=== PATIENT | female | born 1985 | race Caucasian/White ===

== ENCOUNTER 2016-07-29 13:52 | Emergency (ER) | payer MEDICAID ==
[2016-07-29 13:52] VITALS: BMI 27.8
[2016-07-29 14:07] VITALS: BP 130/78; PULSE 78; RESP 18; TEMP 98.2; O2SAT 100
[2016-07-29] MEDS ORDERED: Naproxen 500 MG TAB PO ONE (14:13)
--- NOTE | 2016-07-29 14:15 | ED PDOC ---
Lower Extremity Pain/Injury Time Seen by Provider: 07/29/16 14:09 Chief Complaint (Nursing): Wound Check Chief Complaint (Provider): Lt Leg Pain History Per: Patient History/Exam Limitations: no limitations Onset/Duration Of Symptoms: Hrs Current Symptoms Are (Timing): Still Present Severity: Mild Additional Complaint(s): Patient is a 30 year old female presenting to the ED complaining of left leg pain status post fall last night. Patient reports her friend jumped on her back and her knee twisted inward and she collapsed. Patient reports last year she visited the ED for atraumatic left leg pain. Denies foot pain, hip pain, head injury, other injury. PMD: none - Knee Description Of Injury: Fell Past Medical History Vital Signs: Last Vital Signs Temp 98.2 F 07/29/16 14:04 Pulse 78 07/29/16 14:04 Resp 18 07/29/16 14:04 BP 130/78 07/29/16 14:04 Pulse Ox 100 07/29/16 14:04 - Medical History PMH: Back Problems - Family History Family History: States: No Known Family Hx - Immunization History Hx Tetanus Toxoid Vaccination: Yes Hx Influenza Vaccination: No Hx Pneumococcal Vaccination: No - Home Medications Home Medications: Ambulatory Orders Medication Instructions Recorded Ciprofloxacin 0.3% [Ciloxan 0.3% 25 drop OD Q2 #1 bottle 02/03/16 Ophth SOLN] Naproxen Sodium [Aleve] 2 tab PO Q8 02/03/16 PrednisoLONE 1% [Prednisolone 2 drop OD Q4 02/03/16 Acetate 5 Ml] Meloxicam [Mobic] 7.5 mg PO DAILY PRN #30 tab 07/29/16 - Allergies Allergies/Adverse Reactions: Allergies Allergy/AdvReac Type Severity Reaction Status Date / Time No Known Allergies Allergy Verified 02/03/16 16:00 Review of Systems ROS Statement: Except As Marked, All Systems Reviewed And Found Negative Constitutional: Negative for: Fever Musculoskeletal: Positive for: Leg Pain (left leg pain) Physical Exam - Reviewed Nursing Documentation Reviewed: Yes Vital Signs Reviewed: Yes - Physical Exam Appears: Positive for: Well, Non-toxic, No Acute Distress Head Exam: Positive for: ATRAUMATIC, NORMAL INSPECTION, NORMOCEPHALIC Skin: Positive for: Normal Color, Warm. Negative for: Rash Eye Exam: Positive for: Normal appearance Respiratory: Negative for: Respiratory Distress Pulses-Dorsalis Pedis (L): 2+ Pulses-Dorsalis Pedis (R): 2+ Extremity: Positive for: Tenderness (to lft knee greatest on medial side). Negative for: Normal ROM (limited secondary to pain lt leg), Calf Tenderness (b/ l), Deformity, Swelling Neurologic/Psych: Positive for: Alert, Oriented - ECG O2 Sat by Pulse Oximetry: 100 (RA) Pulse Ox Interpretation: Normal - Radiology X-Ray: Interpreted by Me (Knee x-ray) X-Ray Interpretation: No Acute Disease Medical Decision Making Medical Decision Making: Time: 14:12 Impression: 30 y/o female w/ left leg pain Plan: XR left knee Naproxen 500 mg PO Scribe Attestation: Documented by Deborah Ny acting as a scribe for Sachin Gil. Provider Attestation: All medical record entries made by the Scribe were at my direction and personally dictated by me. I have reviewed the chart and agree that the record accurately reflects my personal performance of the history, physical exam, medical decision making, and the department course for this patient. I have also personally directed, reviewed, and agree with the discharge instructions and disposition. Disposition - Clinical Impression Clinical Impression: Knee injury - Patient ED Disposition Is Patient to be Admitted: No - Disposition Referrals: [facility] [Outside] Mohamud Rasmussen III, MD [Staff Provider] - Disposition: Routine/Home Disposition Time: 15:15 Condition: STABLE Prescriptions: Meloxicam [Mobic] 7.5 mg PO DAILY PRN #30 tab PRN Reason: pain Instructions: Knee Sprain (ED), Crutch Instructions (ED), Knee Immobilizer (ED) Forms: [facility] ED School/Work Excuse Print Language: CZECH
--- NOTE | 2016-07-29 15:10 | RAD ---
PROCEDURE: Left Knee Radiographs. HISTORY: COMPARISON: None available. FINDINGS: BONES: No acute displaced fracture. JOINTS: No dislocation. JOINT EFFUSION: No significant joint effusion. OTHER FINDINGS: None. IMPRESSION: No acute displaced fracture, dislocation, or significant joint effusion identified. If symptoms persist, or if there is continued clinical concern, x-ray follow-up in 7-10 days should be considered.
== END 2016-07-29 15:33 | disposition home or self-care (01) ==
LOC: H.ER 13:52
DX: S89.92XA Unspecified injury of left lower leg, initial encounter (principal); W19.XXXA Unspecified fall, initial encounter; Y92.89 Other specified places as the place of occurrence of the external cause

== ENCOUNTER 2017-09-25 17:43 | Emergency (ER) | payer MEDICAID ==
[2017-09-25 17:44] VITALS: BMI 27.8
[2017-09-25 18:15] VITALS: BP 118/70; PULSE 60; RESP 16; TEMP 98.2; O2SAT 99
--- NOTE | 2017-09-25 18:52 | ED PDOC ---
HPI: Headache Time Seen by Provider: 09/25/17 18:18 Chief Complaint (Nursing): Headache Chief Complaint (Provider): Headache, neck pain History Per: Patient History/Exam Limitations: no limitations Additional Complaint(s): 31 year old female presents to the emergency department for evaluation of an intermittent headache that radiates to her right ear and neck for the past 6 days. Patient notes that she has been taking Motrin 800mg without relief, prompting ED visit. Otherwise, she denies fever, nausea, vomiting, vision changes, and dizziness. Denies any trauma or injury. PMD: Shahnaz Arias Past Medical History Reviewed: Historical Data, Nursing Documentation, Vital Signs Vital Signs: Last Vital Signs Temp 98.2 F 09/25/17 18:12 Pulse 60 09/25/17 18:12 Resp 16 09/25/17 18:12 BP 118/70 09/25/17 18:12 Pulse Ox 99 09/25/17 18:12 - Medical History PMH: Back Problems - Surgical History Surgical History: No Surg Hx - Family History Family History: States: No Known Family Hx - Living Arrangements Living Arrangements: With Family - Social History Current smoker - smoking cessation education provided: Yes Alcohol: Social Drugs: Denies - Home Medications Home Medications: Ambulatory Orders Medication Instructions Recorded Naproxen Sodium [Aleve] 2 tab PO Q8 02/03/16 Meloxicam [Mobic] 7.5 mg PO DAILY PRN #30 tab 07/29/16 oxyCODONE/Acetaminophen [Percocet 1 tab PO QID PRN #10 tab 07/30/16 5/325 mg Tab] Cyclobenzaprine [Cyclobenzaprine 10 mg PO TID PRN #20 tab 09/25/17 HCl] Naproxen [Naprosyn] 500 mg PO BID #20 tab 09/25/17 - Allergies Allergies/Adverse Reactions: Allergies Allergy/AdvReac Type Severity Reaction Status Date / Time No Known Allergies Allergy Verified 09/25/17 18:12 Review of Systems ROS Statement: Except As Marked, All Systems Reviewed And Found Negative Constitutional: Negative for: Fever, Chills, Weakness Eyes: Negative for: Vision Change Cardiovascular: Negative for: Chest Pain Gastrointestinal: Negative for: Nausea, Vomiting Neurological: Positive for: Headache (right sided ). Negative for: Weakness, Numbness, Incoordination, Change in Speech, Confusion, Seizures, Altered Mental Status, Dizziness Physical Exam - Reviewed Nursing Documentation Reviewed: Yes Vital Signs Reviewed: Yes - Physical Exam Appears: Positive for: Well, Non-toxic, No Acute Distress Head Exam: Positive for: ATRAUMATIC, NORMAL INSPECTION, NORMOCEPHALIC Skin: Positive for: Normal Color. Negative for: Rash Eye Exam: Positive for: Normal appearance, EOMI, PERRL ENT: Positive for: Normal ENT Inspection Neck: Positive for: Normal, Pain On Movement Of Neck (muscle spasm posterior neck) Cardiovascular/Chest: Positive for: Regular Rate, Rhythm Respiratory: Positive for: Normal Breath Sounds. Negative for: Respiratory Distress Extremity: Positive for: Normal ROM Neurologic/Psych: Positive for: Alert, garment parts cutter machine II-XII (grossly intact), Oriented. Negative for: Motor/Sensory Deficits, Aphasia, Facial Droop - Laboratory Results Result Diagrams: 09/25/17 19:24 09/25/17 19:24 Urine POC: Negative - ECG O2 Sat by Pulse Oximetry: 99 (RA) Pulse Ox Interpretation: Normal - Other Rad CT head X-Ray: Read By Radiologist X-Ray Interpretation: no acute finding Medical Decision Making Medical Decision Making: Time: 18:55 Initial Impression: 31 year old female with headache Initial Plan: --CT Head --IV fluids --Reglan IV --Toradol IV 20:15 - Patient states pain is improved with meds given. She still has muscle spasm pain to posterior neck, Flexeril 10 mg tablet given. 21:15 - patient feels better, pain is resolved. Patient aware of all diagnostic test results, all questions answered. Prescriptions given for Naprosyn and Flexeril. Patient was advised to follow-up with PMD or clinic in 2-3 days. Scribe Attestation: Documented by Sanna Jones, acting as a scribe for Olive Amsellem, PA-C. Provider Scribe Attestation: All medical record entries made by the Scribe were at my direction and personally dictated by me. I have reviewed the chart and agree that the record accurately reflects my personal performance of the history, physical exam, medical decision making, and the department course for this patient. I have also personally directed, reviewed, and agree with the discharge instructions and disposition. Disposition - Clinical Impression Clinical Impression: Headache, Neck sprain - Patient ED Disposition Is Patient to be Admitted: No Counseled Patient/Family Regarding: Studies Performed, Diagnosis, Need For Followup, Rx Given - Disposition Referrals: Shahnaz Arias [Medical Doctor] - Disposition: Routine/Home Disposition Time: 21:17 Condition: IMPROVED Additional Instructions: Take prescription meds as directed as needed for pain. Avoid heavy lifting and rest affected area. Apply warm compresses for soothing relief. Follow-up with primary doctor in 2-3 days or return any time if acutely worse. Prescriptions: Cyclobenzaprine [Cyclobenzaprine HCl] 10 mg PO TID PRN #20 tab PRN Reason: Muscle Spasm Naproxen [Naprosyn] 500 mg PO BID #20 tab Instructions: Cervical Muscle Strain (DC), Headache, Adult Forms: [employer] [facility] (Cameroonian) Results - Lab Results Lab Results: 09/25/17 09/25/17 19:24 19:24 WBC 7.6 RBC 4.16 Hgb 13.4 Hct 38.4 MCV 92.2 MCH 32.1 H MCHC 34.9 RDW 11.9 Plt Count 177 MPV 8.3 Neut % (Auto) 61.1 Lymph % (Auto) 29.6 Terrell % (Auto) 5.9 Eos % (Auto) 2.9 Baso % (Auto) 0.5 Neut # (Auto) 4.6 Lymph # (Auto) 2.2 Terrell # (Auto) 0.4 Eos # (Auto) 0.2 Baso # (Auto) 0.0 Sodium 141 Potassium 3.7 Chloride 106 Carbon Dioxide 24 Anion Gap 15 BUN 14 Creatinine 0.6 L Est GFR ( Amer) > 60 Est GFR (Non-Af Amer) > 60 Random Glucose 95 Calcium 9.6 Total Bilirubin 0.6 AST 24 ALT 41 Alkaline Phosphatase 66 Total Protein 7.5 Albumin 4.5 Globulin 3.1 Albumin/Globulin Ratio 1.5
[2017-09-25] MEDS ORDERED: Sodium Chloride 0.9% 1,000 ML IV STA (19:06)
[2017-09-25 19:44] LABS: BASO % 0.5 % (0.0-2.0); EOS # 0.2 K/uL (0.0-0.7); EOS % 2.9 % (0.0-4.0); HEMOGLOBIN 13.4 g/dL (12.0-16.0); LYMPH # 2.2 K/uL (1.0-4.3); LYMPH % 29.6 % (20.0-40.0); MEAN CELL VOLUME 92.2 fl (81.0-99.0); MEAN CORPUSCULAR HEMOGLOBIN 32.1 pg (27.0-31.0); MEAN CORPUSCULAR HGB CONC 34.9 g/dL (33.0-37.0); MEAN PLATELET VOLUME 8.3 fl (7.2-11.7); MONO # 0.4 K/uL (0.0-0.8); MONO % 5.9 % (0.0-10.0); NEUT # 4.6 K/uL (1.8-7.0); NEUT % 61.1 % (50.0-75.0); RBC 4.16 Mil/uL (3.80-5.20); RED CELL DISTRIBUTION WIDTH 11.9 % (11.5-14.5); WHITE BLOOD COUNT 7.6 K/uL (4.8-10.8)
[2017-09-25 20:05] LABS: ALB/GLOB RATIO 1.5 (1.0-2.1); ALBUMIN 4.5 g/dL (3.5-5.0); ALT/SGPT 41 U/L (9-52); AST/SGOT 24 U/L (14-36); BLOOD UREA NITROGEN 14 mg/dl (7-17); CALCIUM 9.6 mg/dL (8.4-10.2); GFR AFRICAN-AMERICAN > 60; GFR NON-AFRICAN AMERICAN > 60
--- NOTE | 2017-09-26 08:33 | CT ---
Date of service: 09/25/2017 PROCEDURE: CT HEAD WITHOUT CONTRAST. HISTORY: right side headache for 4 days COMPARISON: None available. TECHNIQUE: Axial computed tomography images were obtained through the head/brain without intravenous contrast. Radiation dose: Total exam DLP = 758.17 mGy-cm. This CT exam was performed using one or more of the following dose reduction techniques: Automated exposure control, adjustment of the mA and/or kV according to patient size, and/or use of iterative reconstruction technique. FINDINGS: HEMORRHAGE: No intracranial hemorrhage. BRAIN: No mass effect or edema. No atrophy or chronic microvascular ischemic changes. VENTRICLES: Unremarkable. No hydrocephalus. CALVARIUM: Unremarkable. PARANASAL SINUSES: Unremarkable as visualized. No significant inflammatory changes. MASTOID AIR CELLS: Unremarkable as visualized. No inflammatory changes. OTHER FINDINGS: None. IMPRESSION: No intracranial mass, hemorrhage or evidence of acute infarct. The preliminary findings for this examination were reported by [facility] at 8:20 p.m. on 09/25/2017. There is concurrence of this report with the preliminary findings.
== END 2017-09-25 21:35 | disposition home or self-care (01) ==
LOC: H.ER 17:43
DX: S13.9XXA Sprain of joints and ligaments of unspecified parts of neck, initial encounter (principal); Y92.89 Other specified places as the place of occurrence of the external cause
CPT/HCPCS: 70450; 80053; 85025; 96360; 99282; J1885; J2765; J7030

== ENCOUNTER 2017-10-15 14:27 | Emergency (ER) | payer MEDICAID ==
[2017-10-15 14:27] VITALS: BMI 27.8
[2017-10-15 14:51] VITALS: BP 98/64; PULSE 71; RESP 20; TEMP 98.7; O2SAT 99
--- NOTE | 2017-10-15 15:13 | ED PDOC ---
HPI: Dental Pain/Injury Time Seen by Provider: 10/15/17 14:52 Chief Complaint (Nursing): Dental Pain Chief Complaint (Provider): Dental Pain, cough History Per: Patient History/Exam Limitations: no limitations Current Symptoms Are (Timing): Still Present Additional Complaint(s): 32 y/o female presents to the ED complaining of dental pain ongoing for several months. Patient was [id number] canal but never did. She also complains of cough that started 2 days ago. No fever or chills. Motrin has helped the dental pain somewhat. PMD. Dr. Nix Past Medical History Reviewed: Historical Data, Nursing Documentation, Vital Signs Vital Signs: Last Vital Signs Temp 98.7 F 10/15/17 14:49 Pulse 71 10/15/17 14:49 Resp 20 10/15/17 14:49 BP 98/64 L 10/15/17 14:49 Pulse Ox 99 10/15/17 14:49 - Medical History PMH: Back Problems - Surgical History Surgical History: No Surg Hx - Family History Family History: States: No Known Family Hx - Living Arrangements Living Arrangements: With Family - Social History Current smoker - smoking cessation education provided: No Alcohol: None Drugs: Denies - Home Medications Home Medications: Ambulatory Orders Medication Instructions Recorded Naproxen Sodium [Aleve] 2 tab PO Q8 02/03/16 Meloxicam [Mobic] 7.5 mg PO DAILY PRN #30 tab 07/29/16 oxyCODONE/Acetaminophen [Percocet 1 tab PO QID PRN #10 tab 07/30/16 5/325 mg Tab] Cyclobenzaprine [Cyclobenzaprine 10 mg PO TID PRN #20 tab 09/25/17 HCl] Naproxen [Naprosyn] 500 mg PO BID #20 tab 09/25/17 Amoxicillin/Clavulanate [Augmentin 1 tab PO BID #14 tab 10/15/17 875 MG-125 MG] Benzonatate 200 mg PO TID PRN #20 capsule 10/15/17 Ibuprofen [Motrin Tab] 800 mg PO Q8 PRN #20 tab 10/15/17 Lidocaine 2% Viscous 10 ml MM QID #200 ml 10/15/17 - Allergies Allergies/Adverse Reactions: Allergies Allergy/AdvReac Type Severity Reaction Status Date / Time No Known Allergies Allergy Verified 09/25/17 18:12 Review of Systems ROS Statement: Except As Marked, All Systems Reviewed And Found Negative Constitutional: Negative for: Fever, Chills ENT: Positive for: Other (Toothache) Respiratory: Positive for: Cough Neurological: Negative for: Headache, Dizziness Physical Exam - Reviewed Nursing Documentation Reviewed: Yes Vital Signs Reviewed: Yes - Physical Exam Appears: Positive for: Well, No Acute Distress Head Exam: Positive for: ATRAUMATIC Skin: Positive for: Normal Color Eye Exam: Positive for: Normal appearance ENT: Positive for: Other (Dental caries noted to the right upper mandibular teeth with surrounding gingival swelling. No abscess) Cardiovascular/Chest: Positive for: Regular Rate, Rhythm Respiratory: Positive for: Normal Breath Sounds. Negative for: Respiratory Distress Extremity: Positive for: Normal ROM. Negative for: Deformity Neurologic/Psych: Positive for: Alert, Oriented. Negative for: Motor/Sensory Deficits - Laboratory Results Urine POC: Negative (patient refused test, states she is certain she is not ) - ECG O2 Sat by Pulse Oximetry: 99 (RA) Pulse Ox Interpretation: Normal Medical Decision Making Medical Decision Making: Time: 1510 Impression: Toothache and Upper Respiratory Infection Plan: -- Motrin 600 mg PO -- Patient to be discharged home with a prescription of Augmentin, viscous lidocaine and tessalon perles. Advised PMD and dentist follow-up as soon as possible. ___ Scribe Attestation: Documented by Evita Quigley, acting as a scribe for Olive Fenton PA-C. Provider Scribe Attestation: All medical record entries made by the Scribe were at my direction and personally dictated by me. I have reviewed the chart and agree that the record accurately reflects my personal performance of the history, physical exam, medical decision making, and the department course for this patient. I have also personally directed, reviewed, and agree with the discharge instructions and disposition. Disposition - Clinical Impression Clinical Impression: Pain, dental, Upper respiratory infection - Patient ED Disposition Is Patient to be Admitted: No Counseled Patient/Family Regarding: Studies Performed, Diagnosis, Need For Followup, Rx Given - Disposition Referrals: Alexey Nix MD [Non-Staff] - Disposition: Routine/Home Disposition Time: 16:10 Condition: STABLE Additional Instructions: Take prescription meds as directed. Follow-up with dentist and primary doctor. Prescriptions: Amoxicillin/Clavulanate [Augmentin 875 MG-125 MG] 1 tab PO BID #14 tab Benzonatate 200 mg PO TID PRN #20 capsule PRN Reason: Cough Ibuprofen [Motrin Tab] 800 mg PO Q8 PRN #20 tab PRN Reason: Pain, Moderate (4-7) Lidocaine 2% Viscous 10 ml MM QID #200 ml Instructions: Dental Pain (DC), Bacterial Upper Respiratory Infection, Adult Forms: [facility] (Spanish)
== END 2017-10-15 16:35 | disposition home or self-care (01) ==
LOC: H.ER 14:27
DX: J06.9 Acute upper respiratory infection, unspecified (principal); K08.89 Other specified disorders of teeth and supporting structures